=== PATIENT | female | born 1960 | race Caucasian/White ===

== ENCOUNTER 2019-10-07 07:50 | Observation (INO) | payer OTHER ==
[~2019-10-07] VITALS: Ht 160 cm; Wt 88.6 kg
[~2019-10-07 07:50] MED LIST: ALBU90OI6 INH; CALCA500CH; CHOL10002; DULO30 PO; ESCI20 PO; FEXO180 PO; FLAX; FLUSAL2505 IH; ISOMON30 PO; LORA.5; MONT10T PO; MULTIVITAMIN; Selenium50 MCG; TRAM50; Vitamin C100 M1
[2019-10-07 08:15] LABS: BASOPHILS ABSOLUTE AUTO 0.07 K/mm3 (0.00-0.23); BASOPHILS PERCENT AUTO 1 % (0-2); EOSINOPHILS ABSOLUTE AUTO 0.14 K/mm3 (0.00-0.68); EOSINOPHILS PERCENT AUTO 1 % (0-6); Hematocrit 41.9 % (33.0-51.0); Hemoglobin 13.1 g/dL (11.5-16.0); IMMATURE GRAN ABSOLUTE AUTO 0.03 K/mm3 (0.00-0.10); IMMATURE GRAN PERCENT AUTO 0 % (0-1); LYMPHOCYTES ABSOLUTE AUTO 1.65 K/mm3 (0.84-5.20); LYMPHOCYTES PERCENT AUTO 15 % (21-46); MONOCYTES ABSOLUTE AUTO 0.69 K/mm3 (0.16-1.47); MONOCYTES PERCENT AUTO 6 % (4-13); Mean Corpuscular HGB 30.4 pg (26.0-34.0); Mean Corpuscular HGB Conc 31.3 g/dL (31.5-36.5); Mean Corpuscular Volume 97 fL (80-100); Mean Platelet Volume 10.9 fL (9.1-12.4); NEUTROPHILS ABSOLUTE AUTO 8.36 K/mm3 (1.96-9.15); NEUTROPHILS PERCENT AUTO 76 % (41-73); Platelet Count 303 K/mm3 (150-400); RDW Coefficient Variation 14.6 % (11.7-14.2); RDW Standard Deviation 53.1 fL (35.1-46.3); Red Blood Cell Count 4.31 M/mm3 (3.80-5.20); White Blood Cell Count 10.94 K/mm3 (4.00-11.30)
[2019-10-07 08:30] LABS: International Normalized Ratio 0.99; Prothrombin Time Results 10.5 Sec (9.7-11.5)
[2019-10-07 08:52] LABS: Alanine Aminotransfer (ALT/SGP 32 U/L (12-78); Albumin, Blood 3.5 g/dL (3.4-5.0); Alk Phos 102 U/L (50-136); Anion Gap 6 mmol/L (6-16); Aspartate Aminotrans (AST/SGOT 35 U/L (12-37); Bilirubin, Total 0.5 mg/dL (0.1-1.0); Blood Urea Nitrogen 13 mg/dL (8-24); Bun/Creatinine Ratio 17.3 (12.0-20.0); CO2, Blood 25 mmol/L (21-32); Calcium, Blood 8.3 mg/dL (8.5-10.1); Chloride, Blood 111 mmol/L (98-108); Creatinine, Blood 0.75 mg/dL (0.40-1.00); Globulin, Blood 3.4 g/dL (2.2-4.0); Glomerular Filtration Rate >60 (60-); Glucose, Blood 84 mg/dL (70-99); Potassium, Blood 4.5 mmol/L (3.5-5.5); Sodium, Blood 142 mmol/L (136-145); Total Protein, Blood 6.9 g/dL (6.4-8.2); Troponin I 0.049 ng/mL (0.000-0.040)
[2019-10-07] MEDS ORDERED: SPIRIVA RESPIMAT4 GM INH (12:12)
--- NOTE | 2019-10-07 12:50 | NUR ---
Received telephone report from [facility] ED RN. Pt transported to PCU via stretcher. Assumed Pt care. A&O x3, follows commands. In no acute distress. Continuous telemetry monitoring placed, showing NSR at 79bpm. Cardiology consulted, Dr. Maciel in to see Pt. No c/o chest pain, but voices c/o back discomfort.
--- NOTE | 2019-10-07 15:30 | NUR ---
PT TAKEN TO [facility] BY STAFF VIA BED. FAMILY AWARE
--- NOTE | 2019-10-07 18:20 | NUR ---
Pt returned to floor from hatchery laborer at 1740. In no acute distress at this time. TR band to right wrist intact with splint in place. No edema or hematoma noted. Good capillary refill, able to wiggle fingers, denies numbness or tingling. Reminded Pt of TR band precautions, indicated understanding. Meal tray ordered. Denies any needs at this time. Side rails in place, bed down, call light and possessions in reach.
--- NOTE | 2019-10-08 00:28 | NUR ---
TR BAND OFF TR BAND COMPLETELY DEFLATED AT APPROX 2230. TR BAND OFF AT APPROX 0025. A SCANT AMOUNT OF OOZING OCCURED DURING DEFLATION. NO ACTIVE BLEEDING OR LUMP FORMATION NOTED AT THIS TIME. TEGADERM PLACED ON SITE AND ARMBOARD IN PLACE AT THIS TIME. POST ANGIO EDUCATION AND MOVEMENT RESTRICTIONS PROVIDED TO PATIENT. PATIENT VERABILIZES UNDERSTANDING. WILL CONTINUE TO MONITOR PATIENT.
[2019-10-08 03:10] LABS: BASOPHILS ABSOLUTE AUTO 0.03 K/mm3 (0.00-0.23); BASOPHILS PERCENT AUTO 0 % (0-2); EOSINOPHILS ABSOLUTE AUTO 0.12 K/mm3 (0.00-0.68); EOSINOPHILS PERCENT AUTO 2 % (0-6); Hematocrit 36.2 % (33.0-51.0); Hemoglobin 11.5 g/dL (11.5-16.0); IMMATURE GRAN ABSOLUTE AUTO 0.02 K/mm3 (0.00-0.10); IMMATURE GRAN PERCENT AUTO 0 % (0-1); LYMPHOCYTES ABSOLUTE AUTO 1.97 K/mm3 (0.84-5.20); LYMPHOCYTES PERCENT AUTO 28 % (21-46); MONOCYTES PERCENT AUTO 9 % (4-13); Mean Corpuscular HGB 30.7 pg (26.0-34.0); Mean Corpuscular HGB Conc 31.8 g/dL (31.5-36.5); Mean Corpuscular Volume 97 fL (80-100); Mean Platelet Volume 10.8 fL (9.1-12.4); NEUTROPHILS ABSOLUTE AUTO 4.28 K/mm3 (1.96-9.15); NEUTROPHILS PERCENT AUTO 61 % (41-73); Platelet Count 236 K/mm3 (150-400); RDW Coefficient Variation 14.6 % (11.7-14.2); RDW Standard Deviation 51.3 fL (35.1-46.3); Red Blood Cell Count 3.75 M/mm3 (3.80-5.20); White Blood Cell Count 7.02 K/mm3 (4.00-11.30)
[2019-10-08 03:30] LABS: Alanine Aminotransfer (ALT/SGP 27 U/L (12-78); Albumin/Globulin Ratio 1.1 (0.8-1.8); Alk Phos 92 U/L (50-136); Anion Gap 9 mmol/L (6-16); Aspartate Aminotrans (AST/SGOT 34 U/L (12-37); Bilirubin, Total 0.5 mg/dL (0.1-1.0); Blood Urea Nitrogen 13 mg/dL (8-24); Bun/Creatinine Ratio 18.1 (12.0-20.0); CHOL/HDL RATIO 1.9; CO2, Blood 23 mmol/L (21-32); Chloride, Blood 110 mmol/L (98-108); Cholesterol 118 mg/dL (50-200); Creatinine, Blood 0.72 mg/dL (0.40-1.00); Globulin, Blood 2.7 g/dL (2.2-4.0); Glomerular Filtration Rate >60 (60-); Glucose, Blood 83 mg/dL (70-99); HDL Cholesterol 62 mg/dL (>39); LDL/HDL RATIO 0.6; Low Density Lipoprotein Chol 34 mg/dL (0-110); Potassium, Blood 3.7 mmol/L (3.5-5.5); Sodium, Blood 142 mmol/L (136-145); Total Protein, Blood 5.7 g/dL (6.4-8.2); Triglycerides 109 mg/dL (30-160); Very Low Density Lipoprot Chol 21 mg/dL (6-32)
--- NOTE | 2019-10-08 06:31 | NUR ---
SHIFT SUMMARY PATIENT PLEASENT AND COOPERATIVE THROUGHOUT THE NIGHT. PATIENT APPEARED TO SLEEP WELL LAST NIGHT. ANGIO SITE TO RIGHT WRIST CONTINUES TO HAVE NO ACTIVE BLEEDING OR HEMATOMA FORMATION. ARMBOARD TO RIGHT WRIST. PATIENT CURRENTLY AWAKE AND TALKING ON THE PHONE. WILL CONTINUE TO MONITOR PATIENT AND REPORT TO ONCOMING RN.
--- NOTE | 2019-10-08 07:23 | NUR ---
ASSUMED CARE: PT RESTING IN BED. AWAKE, ALERT AND ORIENTED. RIGHT RADIAL SITE WITH MINIMAL DRAINAGE, NO SIGN OF BRUISING OR HEMATOMA. NO ACUTE DISTRESS NOTED
--- NOTE | 2019-10-08 11:49 | NUR ---
Patient is is sitting up in bed and alert. Patient's spouse, Gus is bedside. They tell me about the events that surround patient's stay in the hospital and the medical help she received. They tell me about their family, the medical history of the family and about their veronica journey. They also decribe the emotional roller coaster the last few days has been. I listen empathically, conduct a life review, normalize patient experience and provide spiritual guidance and prayer. Patient responds well and both patient and Gus share their thankfulness for the medical stability. I will continue to remain available to patient and family.
[2019-10-08] MEDS ORDERED: ACET325 PO (12:56)
[2019-10-08] MEDS ORDERED: ASPI325 PO (12:57)
[2019-10-08] MEDS ORDERED: CLOP75 PO (12:57)
[2019-10-08] MEDS ORDERED: LISI5 PO (12:58)
[2019-10-08] MEDS ORDERED: METO25 PO (12:59)
[2019-10-08] MEDS ORDERED: NITR.4SL SL (13:05)
[2019-10-08] MEDS ORDERED: ATOR80 PO (13:06)
--- NOTE | 2019-10-08 14:07 | NUR ---
Pt discharged home via automobile, accompanied by her . Educated Pt on proper care of radial site, verbalized understanding. IV to LAC removed, distal tip intact, Pt tolerated well.
== END 2019-10-08 14:06 | disposition home or self-care (01) ==
LOC: ER 07:50 → PCU 07:51 → ER 11:09 → PCU 11:09
PROVIDERS: Emergency Medicine; ADMIT Family Medicine
PROC: B2111ZZ Fluoroscopy of Multiple Coronary Arteries using Low Osmolar Contrast (ICD-10-PCS; principal; 2019-10-07)
PROC: 4A023N7 Measurement of Cardiac Sampling and Pressure, Left Heart, Percutaneous Approach (ICD-10-PCS; principal; 2019-10-07)
DX: I21.4 Non-ST elevation (NSTEMI) myocardial infarction (principal); I24.9 Acute ischemic heart disease, unspecified; I25.10 Atherosclerotic heart disease of native coronary artery without angina pectoris; I10 Essential (primary) hypertension; E78.5 Hyperlipidemia, unspecified; J44.9 Chronic obstructive pulmonary disease, unspecified; F17.200 Nicotine dependence, unspecified, uncomplicated; E66.01 Morbid (severe) obesity due to excess calories; F32.9 Major depressive disorder, single episode, unspecified; G47.33 Obstructive sleep apnea (adult) (pediatric); Z79.82 Long term (current) use of aspirin; Z79.02 Long term (current) use of antithrombotics/antiplatelets; Z79.51 Long term (current) use of inhaled steroids; Z79.899 Other long term (current) drug therapy; Z98.84 Bariatric surgery status; Z68.35 Body mass index [BMI] 35.0-35.9, adult
CPT/HCPCS: 36415; 71045; 80053; 80061; 84484; 85025; 85347; 85610; 85730; 86850; 86900; 86901; 92978; 93005; 93010; 93306; 93458; 94640; 94760; 94762; 96365; 96375; 99152; 99153; 99285-25; C1725; C1753; C1769; C1874; C1887; C1894; C9600; G0378; J1644; J2250; J3010; J7030; Q9967

== ENCOUNTER → 2020-04-15 | Outpatient (CLI) | payer OTHER ==
[~2020-04-15] MED LIST changes: +ACET325 PO; +ASPI325 PO; +ATOR80 PO; +CLOP75 PO; +LISI5 PO; +METO25 PO; +NITR.4SL SL; +SPIRIVA RESPIMAT4 GM INH
== END ==
LOC: LAB EV 11:40
DX: R31.9 Hematuria, unspecified (principal)
CPT/HCPCS: 87077; 87086; 87147; 87186

== ENCOUNTER 2021-05-24 11:47 | Day surgery (SDC) | payer OTHER | END 2021-05-24 13:58 | disposition home or self-care (01) | LOC: ORSCSDS 11:47 | PROC: 0DBM8ZX Excision of Descending Colon, Via Natural or Artificial Opening Endoscopic, Diagnostic (ICD-10-PCS; principal; 2021-05-24) | DX: Z12.11 Encounter for screening for malignant neoplasm of colon (principal); Z86.010 Personal history of colon polyps; D12.4 Benign neoplasm of descending colon; K57.30 Diverticulosis of large intestine without perforation or abscess without bleeding; I25.10 Atherosclerotic heart disease of native coronary artery without angina pectoris; Z98.84 Bariatric surgery status; J45.909 Unspecified asthma, uncomplicated; E66.01 Morbid (severe) obesity due to excess calories; Z68.37 Body mass index [BMI] 37.0-37.9, adult; Z79.82 Long term (current) use of aspirin; Z87.891 Personal history of nicotine dependence; Z79.899 Other long term (current) drug therapy ==

== ENCOUNTER 2022-03-22 16:52 | Emergency (ER) | payer OTHER ==
[~2022-03-22] VITALS: Ht 160 cm; Wt 99.8 kg
[~2022-03-22 16:52] MED LIST changes: +ALLEGRA ALLERG180 MG; +ALLEGRA ALLERG180 MG PO; +ASPIR 8181 MG; +CYCL10 PO; +HYDR1TAB94 PO; +OXYC5 PO; +TRAMADOL HCL E100 M1 PO
[2022-03-22] MEDS ORDERED: Percocet 5-3251 EACH PO (21:50)
== END 2022-03-22 23:00 | disposition home or self-care (01) ==
LOC: ER 16:52
DX: S52.531A Colles' fracture of right radius, initial encounter for closed fracture (principal); W01.10XA Fall on same level from slipping, tripping and stumbling with subsequent striking against unspecified object, initial encounter; Z79.899 Other long term (current) drug therapy; Z79.82 Long term (current) use of aspirin; E78.5 Hyperlipidemia, unspecified; E11.9 Type 2 diabetes mellitus without complications; Z87.891 Personal history of nicotine dependence
CPT/HCPCS: 25605; 36415; 76000; 99284-25; A9270; J2704; J7030

== ENCOUNTER 2022-03-28 10:59 | Day surgery (SDC) | payer OTHER ==
[~2022-03-28] VITALS: Ht 160 cm; Wt 99.7 kg
[~2022-03-28 10:59] MED LIST changes: +Percocet 5-3251 EACH PO
--- NOTE | 2022-03-28 12:41 | NUR ---
03/28/22 [address] INFORMED THAT PT HAS ASTHMA, USES ALBUTEROL DAILY, USED ALBUTEROL THIS MORNING, LUNGS CLEAR. NO ADDITIONAL ORDERS GIVEN.
== END 2022-03-28 15:16 | disposition home or self-care (01) ==
LOC: ORSCSDS 10:59
PROVIDERS: Orthopaedic Surgery
PROC: 0PSH04Z Reposition Right Radius with Internal Fixation Device, Open Approach (ICD-10-PCS; principal; 2022-03-28 13:15)
DX: S52.501A Unspecified fracture of the lower end of right radius, initial encounter for closed fracture (principal); S52.611A Displaced fracture of right ulna styloid process, initial encounter for closed fracture; W18.30XA Fall on same level, unspecified, initial encounter; Z87.891 Personal history of nicotine dependence; J45.909 Unspecified asthma, uncomplicated; I25.10 Atherosclerotic heart disease of native coronary artery without angina pectoris; Z79.899 Other long term (current) drug therapy; K21.9 Gastro-esophageal reflux disease without esophagitis
CPT/HCPCS: C1713; J0171; J0690; J1100; J2250; J2405; J2704; J3010; J7030; J7120